=== PATIENT | female | born 2005 | race Caucasian/White ===

== ENCOUNTER 2024-09-12 12:35 | Emergency (ER) | payer SELFPAY ==
[~2024-09-12] VITALS: Ht 165.1 cm; Wt 52.2 kg
[2024-09-12 12:40] VITALS: RESP 18; TEMP 97.8
[2024-09-12 13:19] LABS: BILIRUBIN,URINE NEGATIVE (NEGATIVE); CLARITY,URINE CLEAR (CLEAR); COLOR,URINE YELLOW (YELLOW); GLUCOSE, URINE NEGATIVE (NEGATIVE); KETONES,URINE NEGATIVE (NEGATIVE); LEUKOCYTE ESTERASE ,URINE TRACE (NEGATIVE); NITRITE,URINE NEGATIVE (NEGATIVE); PH,URINE 6 (5 - 7); PREGNANCY TEST, URINE NEGATIVE (NEGATIVE); PROTEIN,URINE DIPSTICK NEGATIVE (NEGATIVE); URINE UROBILINOGEN 0.2 mg/dL (0.2 - 1)
[2024-09-12 13:29] LABS: BACTERIA,URINE RARE /HPF; EPITHELIAL CELLS,URINE FEW /LPF; WBC,URINE (MAN) 0-5 /HPF (0-5)
[2024-09-12 13:47] LABS: BASOPHILS # (AUTO) 0.1 (0.0-0.1); BASOPHILS % 0.8 % (0.0-1.0); EOSINOPHILS # (AUTO) 0.1 (0.0-0.4); EOSINOPHILS % 1.4 % (0.0-6.0); HEMATOCRIT 38.4 % (34.2-44.1); HEMOGLOBIN 12.9 g/dL (12.0-16.0); LYMPHOCYTES # (AUTO) 2.2 (1.0-3.2); LYMPHOCYTES % 21.1 % (18.0-39.1); MEAN CORPUSCULAR HEMOGLOBIN 30.2 pg (28-32); MEAN CORPUSCULAR HGB CONC 33.6 g/dL (31-35); MEAN CORPUSCULAR VOLUME 89.9 fL (81-99); MONOCYTES # (AUTO) 1.4 (0.2-0.8); MONOCYTES % 13.4 % (4.4-11.3); NEUTROPHILS # (AUTO) 6.5 (2.1-6.9); PLATELET COUNT 275 x10e3/uL (140-360); RED BLOOD COUNT 4.27 x10e6/uL (3.6-5.1); RED CELL DISTRIBUTION WIDTH 12.4 % (11.7-14.4); WHITE BLOOD COUNT 10.24 x10e3/uL (4.8-10.8)
[2024-09-12] MEDS ORDERED: IOPAMIDOL 370 MG/ML 100 ML INFUS..BTL INJ ONE (13:52)
[2024-09-12 14:01] LABS: ALBUMIN 4.1 g/dL (3.5-5.0); ALBUMIN/GLOBULIN RATIO 1.4 (0.8-2.0); ANION GAP 15.8 mmol/L (8-16); BILIRUBIN,TOTAL 1.8 mg/dL (0.2-1.2); CREATININE, SERUM 1.21 mg/dL (0.57-1.11); POTASSIUM 3.8 mmol/L (3.5-5.1); TOTAL PROTEIN 7.1 g/dL (6.5-8.1)
[2024-09-12] MEDS: SODIUM CHLORIDE 0.9% 1000ML 1,000 ML IV ONE (14:39)
[2024-09-12] MEDS: KETOROLAC TROMETHAMINE 30 MG/ML VIAL IV STA (14:39)
[2024-09-12 16:35] VITALS: PULSE 80; O2SAT 99
== END 2024-09-12 20:50 | disposition short-term general hospital (02) ==
LOC: ER 12:51
DX: M54.50 Low back pain, unspecified (principal); N13.2 Hydronephrosis with renal and ureteral calculous obstruction; R30.0 Dysuria
CPT/HCPCS: 36415; 74176; 80053; 81001; 81025; 83690; 85025; 99284; J1885; J7030; Q9967